=== PATIENT | female | born 2000 | race Caucasian/White ===

== ENCOUNTER 2021-07-10 08:02 | Outpatient (CLI) | payer OTHER ==
[~2021-07-10] VITALS: Ht 167.6 cm; Wt 56.3 kg
[2021-07-10] VITALS (11 sets, daily range): BP systolic 74–108; BP diastolic 36–56
[~2021-07-10 08:02] MED LIST: IRON SUCROSE 300 MG in NS 250 ML OVER 90 MIN. IV ONE
[2021-07-10] MEDS ORDERED: LR 1,000 ML IV SCH (10:15)
== END 2021-07-10 14:10 | disposition home or self-care (01) ==
LOC: M INFU 08:02
PROVIDERS: ATTEND Nurse Practitioner Women's Health
DX: O99.013 Anemia complicating pregnancy, third trimester (principal); D50.9 Iron deficiency anemia, unspecified; Z3A.27 27 weeks gestation of pregnancy
CPT/HCPCS: 96365; 96366; J1756

== ENCOUNTER 2021-07-17 12:41 | Outpatient (CLI) | payer OTHER ==
[~2021-07-17] VITALS: Ht 167.6 cm; Wt 56.3 kg
[2021-07-17 12:45] VITALS: BP 108/55
[2021-07-17 14:30] VITALS: BP 103/55
[2021-07-17 15:06] VITALS: BP 107/53
== END 2021-07-17 15:15 | disposition home or self-care (01) ==
LOC: M INFU 12:41
PROVIDERS: ATTEND Nurse Practitioner Women's Health
DX: O99.012 Anemia complicating pregnancy, second trimester (principal); D50.9 Iron deficiency anemia, unspecified; Z3A.27 27 weeks gestation of pregnancy
CPT/HCPCS: 96365; J1756

== ENCOUNTER 2021-07-24 12:18 | Outpatient (CLI) | payer OTHER ==
[~2021-07-24] VITALS: Ht 167.6 cm; Wt 56.3 kg
[2021-07-24] MEDS ORDERED: IRON SUCROSE 300 MG in NS 250 ML OVER 90 MIN. IV ONE (12:30)
[2021-07-24 13:07] VITALS: BP 109/59
[2021-07-24 14:00] VITALS: BP 110/56
[2021-07-24 15:05] VITALS: BP 106/56
== END 2021-07-24 15:05 | disposition home or self-care (01) ==
LOC: M INFU 12:18 → EDUNIT# 12:30 → M INFU 15:05
PROVIDERS: ATTEND Nurse Practitioner Women's Health
DX: O99.012 Anemia complicating pregnancy, second trimester (principal); D50.9 Iron deficiency anemia, unspecified; Z3A.27 27 weeks gestation of pregnancy
CPT/HCPCS: 96365; 96366; J1756

== ENCOUNTER 2021-09-06 22:39 | Inpatient (IN) | payer OTHER ==
[~2021-09-06] VITALS: Ht 167.6 cm; Wt 62.7 kg
[2021-09-06 23:07] VITALS: BP 126/97
[2021-09-06] MEDS ORDERED: LIDOCAINE 1% MDV 20ML VIAL INFIL PRN (23:10)
[2021-09-06] MEDS ORDERED: METHYLERGONOVINE MALEATE 0.2 MG/ML VIAL (J2210) IM PRN (23:10)
[2021-09-06] MEDS ORDERED: LACTATED RINGER'S 1000 ML IV STA (23:10)
[2021-09-06] MEDS ORDERED: OXYTOCIN DRIP 30 UNITS in IV 1 EA IV PRN (23:10)
--- NOTE | 2021-09-06 23:22 | HPEPDOC ---
Obstetrical History & Physical General Date of Admission History of Present Illness 21 yo at 38+4 weeks gestation by 28+6 week US (unknown LMP) on 30Jun2021 presented to L&D with regular, painful contractions. She reports her water broke at ~2100. Clear fluid. She denies any bleeding. She endorses regular movement. Chief Complaint: Contractions, term Information Provided By: Patient Age: 21 : 1 Term: 0 Pre-term: 0 Abortions: 0 Livin Care Care: Limited Care (Late to care. First appointment at ~29 weeks gestation) Dating Final EDC: Sep 16, 2021 Final EDC for Daily Update: Sep 16, 2021 Final EDC by: 3rd trimester (US) (Unknown LMP. 28+6 week US on 30Jun2021 set BILLIE of 16Sep2021) Antepartum Course Diagnos(e)s Late entry to care and limited care Anemia Past Medical History Past Obstetrical History : Past Obstetrical History: [employer]img[employer]ANT History: No pertinent history Past Medical History Medical History Anemia Surgical History: Denies/None Family History Significant Family History: No pertinent family hx Social History Marital Status: Family situation: Spouse/partner home Psychosocial History: No pertinent psych hx * Smoker: non-smoker Alcohol: Denies Drugs: denies Imunizations Tdap status: current Influenza Status: needs Allergies Coded Allergies: No Known Drug Allergies (Verified Allergy, Unknown, 07/10/21) Physical Examination Physical Examination GENERAL: Alert and oriented times three. ABDOMEN: Gravid and non-tender to touch. FETUS: Is vertex (VTX) by sterile vaginal examination (SVE) EXTREMITIES: No edema. Laboratory Data Urine Culture: No Growth Pertinent Laboratoy Data Blood Type: A+ RBC Antibody Screen: Negative HIV: Negative Hepatitis B: Negative Hepatitis C: Unknown Rapid Plasma Reagin: Nonreactive Rubella: Immune Varicella: Immune Chlamydia/Gonorrhea: Negative Group B Streptococcus: Negative Quad Screen Test: Unknown Cystic Fibrosis: Unknown Anatomy Ultrasound Placenta Location: Posterior Normal Anatomy: Yes Placenta Previa: No Steroid Therapy Steroid Therapy: No Vaginal Examination Dilation: 6 cm Effacement: 100% Station: -1, 0 Cervical Consistency: Soft Cervical Position: Anterior Presentation: Cephalic presentation Position: Vertex (occiput) Assessment Heart Rate (FHR): 140 Variability: Moderate Accelerations: Positive Decelerations: None Tocometer Contractions: Yes Frequency: regular, every 1-3 min. Duration: greater than 60 seconds Strength: palpated as strong Assessment/Plan Assessment 21 yo at 38+4 weeks gestation presented to L&D in active labor with SROM at ~2100. Plan Admit to L&D for expectant management of labor. Will augment as clinically indicated. Labs and IV fluids per L&D protocol. GBS negative. Clear liquid diet as desired. Patient may have epidural if desired. Anticipate . Labor and Delivery Counseling Vaginal / Operative vaginal delivery / C section counseling We will deliver your baby through the vagina with possible assistance of forceps or vacuum device if needed for maternal or indications. Forceps and vacuum are devices that can assist with vaginal delivery when normal pushing efforts cannot achieve delivery on their own or when delivery is needed in an emergency for baby's well-being. Medications may be required to induce or augment (help) your labor in order to achieve a vaginal delivery. An episiotomy may be required to help your baby to delivery vaginally. You may also require repair of any lacerations or tears of your vagina or vulva that are caused by delivery. In some cases, emergencies can occur that require an emergency section delivery so quickly that there may not be enough time to stop and complete consent forms for section. Understand that if this occurs, your providers will discuss the need for a section with you before they proceed with surgery. section is the delivery of your baby through an incision in your abdomen. In some situations, section may be safer to mom and baby than continuing labor and is only performed when clinically indicated. Risks of vaginal delivery include but are not limited to: Bleeding, infection, injury to the vagina, pelvic structures, injury to baby, damage to the uterus, reactions to anesthesia, uterine rupture, risk of hysterectomy for life threatening bleeding, or . Medications used to induce or augment labor may increase your risk for infection, uterine tachysystole, uterine rupture, heart rate abnormalities, need for emergency delivery or possible hysterectomy, and hemorrhage. Additional risks for use of forceps and vacuum include: increased risk of perineal and vaginal lacerations, risk of urinary or bowel incontinence, increased risk of injury to baby with bruising, scratches, hematomas on the head, or intracranial bleeding. Ms. Swain appears to understand these risks and elects to proceed with her labor at this location. She also consents to a blood transfusion if necessary. All patient and questions answered. Russ Cherry DO, RUSS DAVILA DO Sep 06, 2021 23:22
[2021-09-06 23:28] LABS: HEMATOCRIT 39.1 % (36.0-47.0); HEMOGLOBIN 12.8 g/dl (12.0-15.5); MEAN CORPUSCULAR HEMOGLOBIN 26.6 pg (27.0-33.0); MEAN CORPUSCULAR HGB CONC 32.7 g/dl (32.0-36.5); MEAN CORPUSCULAR VOLUME 81.3 fl (80.0-96.0); PLATELET COUNT, AUTOMATED 221 10^3/uL (150-450); RED BLOOD COUNT 4.81 10^6/uL (4.00-5.40); WHITE BLOOD COUNT 13.2 10^3/uL (4.0-10.0)
[2021-09-06] MEDS ORDERED: PRENTAB9 PO (23:39)
[2021-09-06] MEDS ORDERED: VITA500C24 PO (23:39)
[2021-09-06] MEDS ORDERED: IRON65TA2 PO (23:39)
[2021-09-07] VITALS (27 sets, daily range): BP systolic 109–147; BP diastolic 60–86
[2021-09-07] MEDS ORDERED: FENTANYL 2MCG/ML ROPIVACAINE 0.2% IN 0.9% NACL 100ML IVBAG As Ordered ONE (00:04)
[2021-09-07] MEDS: LR 1,000 ML IV SCH ×4 (00:08→23:10)
[2021-09-07] MEDS ORDERED: EPIDURAL/PCA KEYS XX PRN (01:00)
[2021-09-07] MEDS ORDERED: diphenhydrAMINE 50MG/ML VIAL (J1200) IV PRN (01:00)
[2021-09-07] MEDS ORDERED: REFRIGERATOR IV KEYS XX PRN (01:00)
[2021-09-07] MEDS ORDERED: ONDANSETRON 4MG/2ML VIAL IV PRN (01:00)
[2021-09-07] MEDS ORDERED: EPIDURAL COMMENT XX SCH (01:00)
[2021-09-07] MEDS: FENTANYL/ROPIVACAINE/NACL BAG 100 ML EPIDURAL SCH ×3 (01:00→21:00)
[2021-09-07] MEDS ORDERED: ePHEDrine SULFATE 25 MG/5 ML(5MG/ML) SYRINGE IV PRN (01:00)
[2021-09-07] MEDS ORDERED: LACTATED RINGER'S 1000 ML IV PRN (01:00)
[2021-09-07] MEDS ORDERED: NALOXONE INJ 0.4MG/1ML VIAL (J2310 PER 1MG) IV PRN (01:00)
[2021-09-07] MEDS ORDERED: OXYTOCIN 30 UNITS IN 0.9% NaCl 500ML IV BAG (J2590) As Ordered ONE (02:32)
--- NOTE | 2021-09-07 03:49 | IPNPDOC ---
Text Note Date of Service The patient was seen on 09/07/21. NOTE Karen is much more comfortable with her epidural in place but she feels si gnificant pelvic pressure. Chaperoned by RN Cervix: C/C/+1. Forebag ruptured with moderate amount of clear fluid. FHR tracing - Cat II, but with moderate variability, +accels, rare late decel, not persistent, overall reassuring tracing Will begin pushing efforts. All questions answered. Dilip VS,Candice, I+O VS, Candice, I+O Laboratory Tests 09/06/21 23:20 Vital Signs Date Time Temp Pulse Resp B/P (MAP) Pulse Ox O2 Delivery O2 Flow Rate FiO2 09/07/21 02:01 108 118/74 (89) 09/06/21 23:07 18 RUSS DUVAL DO Sep 07, 2021 03:49
[2021-09-07] MEDS ORDERED: DIBUCAINE 1% OINTMENT 30GM TOP PRN (04:45)
[2021-09-07] MEDS ORDERED: DOCUSATE SODIUM 100MG CAPSULE PO PRN (04:45)
[2021-09-07] MEDS ORDERED: PROMETHAZINE 25 MG TAB PO PRN (04:45)
[2021-09-07] MEDS ORDERED: RHOGAM 300 MCG (1500 IU) INJ (J2790) IM SCH (04:45)
[2021-09-07] MEDS ORDERED: ACETAMINOPHEN 500 MG TAB PO PRN (04:45)
[2021-09-07] MEDS ORDERED: ACETAMINOPHEN TAB 650MG DOSE (2X325MG) PO PRN (04:45)
[2021-09-07] MEDS ORDERED: MEASLES,MUMPS,RUBELLA VACCINE INJ (MMR-II) (90707) SC SCH (04:45)
--- NOTE | 2021-09-07 04:50 | DNPDOC ---
[facility] Delivery Note Delivery Note DATE OF DELIVERY: 07Sep2021 at ~0430 PREDELIVERY DIAGNOSIS: 38+5 weeks gestation and active labor POST DELIVERY DIAGNOSIS: Delivered. PROCEDURE: Spontaneous vaginal delivery SALVAGE MACHINE OPERATOR: Dr. Cherry ANESTHESIA: Epidural ESTIMATED BLOOD LOSS: 200 FINDINGS: Pending weight, female infant, Score 05/18 DELIVERY SUMMARY: Karen is a 21 yo G1 now P1 who presented to L&D in active labor. She received an epidural and progressed quickly into 2nd stage. The bed was broken down and she was prepped for delivery. With excellent pushing effort over about only 20 minutes her baby delivered. Presentation was NALDO with restitution to ROT. The left anterior shoulder delivered with gentle traction followed easily by the remainder of the body. The infant was dried and stimulated on the field and a bulb suction was used. The infant was placed on the maternal abdomen and cried vigorously. The three vessel umbilical cord was then clamped and cut by the FOB after appropriate time delay and under my direction. Third stage was completed with gentle traction on on the cord and it was productive of an intact placenta. The uterus was firmed with massage and pitocin was administered IV bolus. Inspection of the cervix, vagina, labia, and perineum revealed bilateral sublabial lacerations and a midline first degree vaginal floor laceration. These were repaired with 3-0 vicryl suture in the usual fashion. There was excellent cosmesis and hemostasis after the repairs. The fundus was palpated again and was firm. Sponge, instrument, and needle counts were correct X2. Mother and stable when I left the room. RUSS Franks DO Sep 07, 2021 04:50
[2021-09-07] MEDS: PRENATAL VITAMINS CHEWABLE TABLET PO SCH (10:00)
[2021-09-07] MEDS: IBUPROFEN 800 MG TAB PO PRN ×3 (10:00→20:43)
[2021-09-08 05:42] VITALS: BP 128/65
--- NOTE | 2021-09-08 06:03 | OBDS ---
[facility] Obstetrical Discharge Sum. Obstetrical Discharge Summary Elementary Classroom Teacher/Provider: ELENA REYNOSO DO Date: Sep 08, 2021 Time: 06:00 : 1 Term: 1 Pre-term: 0 Abortions: 0 Livin VDRL: Non-Reactive Rh: Positive Rubella: Immune Labor uncomplicated labor Delivery normal spontaneous vaginal delivery Infant Sex: Female Infant Weight: pounds (7), ounces (10) Anesthesia: Regional Anesthesia A/P, Post Course List any complications Admission diagnosis: spontaneous rupture of membranes, labor at term. Discharge diagnosis: status post normal spontaneous vaginal delivery Condition at Discharge: Good Discharge Instructions: Home Activity: vaginal rest Diet: resume prehospital Medications: ordered at [place] Follow-up: 6 weeks [place] [employer] Other: Day of discharge exam: a&o x3, nad nonlabored breathing abd soft, nontender, nondistended uterus firm at u-2cm negative calf tenderness bilaterally ELENA REYNOSO DO Sep 08, 2021 06:03
[2021-09-08] MEDS ORDERED: IBUP-1022 PO (06:06)
[2021-09-08] MEDS ORDERED: COLA100C5 PO (06:06)
[2021-09-08] MEDS ORDERED: ACET1TAB55 PO (06:06)
[2021-09-08] MEDS: PRENATAL VITAMINS CHEWABLE TABLET PO SCH (08:07)
[2021-09-08] MEDS: IBUPROFEN 600MG TAB PO PRN ×2 (08:12→14:55)
== END 2021-09-08 18:20 | disposition home or self-care (01) | DRG 807 ==
LOC: M LDO 22:39 → M LDI 23:22 → M OBS 09-07 06:34
PROVIDERS: ADMIT Obstetrics & Gynecology; ATTEND Obstetrics & Gynecology
PROC: 10E0XZZ Delivery of Products of Conception, External Approach (ICD-10-PCS; principal; 2021-09-07)
PROC: 0HQ9XZZ Repair Perineum Skin, External Approach (ICD-10-PCS; 2021-09-07)
DX: O99.02 Anemia complicating childbirth (principal); Z37.0 Single live birth; D64.9 Anemia, unspecified; Z3A.38 38 weeks gestation of pregnancy; O70.0 First degree perineal laceration during delivery